=== PATIENT | female | born 1950 | race Caucasian/White ===

== ENCOUNTER 2020-03-07 13:41 | Emergency (ER) | payer OTHER ==
[2020-03-07 13:48] VITALS: BP 128/74; PULSE 94; BMI 19.8
[2020-03-07 14:25] VITALS: TEMP 98
== END 2020-03-07 14:50 | disposition home or self-care (01) ==
LOC: JERFT 13:41
DX: N64.4 Mastodynia (principal)
CPT/HCPCS: 99282-25

== ENCOUNTER 2020-06-13 17:51 | Emergency (ER) | payer OTHER ==
[2020-06-13 18:36] VITALS: BMI 19.8
[2020-06-14 06:11] VITALS: BP 120/73; PULSE 68; TEMP 98.7
== END 2020-06-13 23:28 | disposition home or self-care (01) ==
LOC: JER 17:51
DX: N64.4 Mastodynia (principal)
CPT/HCPCS: 71045-TC-FY; 93005; 93010; 99284-25